=== PATIENT | male | born 1965 | race Caucasian/White ===

== ENCOUNTER 2023-02-09 12:03 | Emergency (ER) | payer BC, MEDICAID ==
[2023-02-09] MEDS ORDERED: Lidocaine 1% with EPINEPHrine 1:100,000 50 ML MDV SUBCUT STA (12:46)
[2023-02-09] MEDS ORDERED: Bacitracin Oint 1 GM U/D Packet TOP ONE (12:46)
[2023-02-09] MEDS ORDERED: Diphtheria,Pertussis(Acell),Tetanus Vaccine 0.5 ML Syringe IM ONE (12:46)
[2023-02-09] MEDS ORDERED: Ketorolac 30 MG/ML SDV IM ONE (12:46)
== END 2023-02-09 15:34 | disposition home or self-care (01) ==
LOC: JP.ED 12:03
DX: S51.852A Open bite of left forearm, initial encounter (principal); Z23 Encounter for immunization; W54.0XXA Bitten by dog, initial encounter
CPT/HCPCS: 12002; 73090; 90471; 90715; 96372; 99283; J1885